=== PATIENT | female | born 1945 | race Caucasian/White ===

== ENCOUNTER → 2025-03-23 | Outpatient (CLI) | payer MEDICARE, MEDICAID, SELFPAY ==
[2025-03-23 08:44] LABS: Free T4 (Free Thyroxine) 1.21 ng/dL (0.89-1.76); Thyroid Stimulating Hormone 0.18 uIU/mL (0.55-4.78)
[2025-03-23 08:51] LABS: T4 (Thyroxine) 5.9 mcg/dL (4.5-10.9)
[2025-03-28 06:53] LABS: T3,Total* 100 ng/dL (76-181)
== END | disposition home or self-care (01) ==
PROVIDERS: PCP Family Medicine
DX: E03.9 Hypothyroidism, unspecified (principal); E06.3 Autoimmune thyroiditis
CPT/HCPCS: 36415; 84436; 84439; 84443; 84480